=== PATIENT | male | born 1980 | race Caucasian/White ===

== ENCOUNTER 2024-04-28 17:14 | Emergency (ER) | payer OTHER, SELFPAY ==
[2024-04-28 17:20] VITALS: BP 172/116
--- NOTE | 2024-04-28 17:36 | ED.GENMED ---
History of Present Illness
General
Chief Complaint: Chest Pain
Time Seen by Provider: 04/28/24 17:35
History of Present Illness
History of Present Illness:
TIME OF INITIAL ENCOUNTER: 6 PM
HPI: The patient presents due to chest discomfort that started about 24 hours ago. He states it started after he had 'a lot' of thin crust pizza last evening. This is associated with some degree of shortness of breath and he has increased
discomfort when he tries to lay down flat. He does not go to doctors regularly but does not have any history of high blood pressure, high cholesterol, or diabetes. He never smoked. There is no family history of premature cardiovascular disease.
He currently has some central discomfort that is somewhat pleuritic in nature. He has not taken anything for stomach acid.
EXAM:
GENERAL: Well appearing in no distress, elevated BMI
HEENT: Moist oral mucosa
CARDIOVASCULAR: No murmurs, normal heart rate, regular rhythm, No chest wall tenderness
PULMONARY: No respiratory distress, breath sounds are clear and equal
ABDOMEN: Soft with no peritoneal signs, no tenderness
NEUROLOGIC: Excellent strength all extremities, no coordination deficits
PSYCHIATRIC: Appropriate mental status, normal insight and judgement
EXTREMITIES: Nontender, no edema, moves all extremities equally
SKIN: No rash, no lesions
NUMBER AND COMPLEXITY OF PROBLEMS ADDRESSED AT THE ENCOUNTER
� Chronic conditions affecting care: History of asthma
� Acute Exacerbation and/or Progression of Chronic Illness: This is an acute problem
� Differential Diagnosis includes: GERD/esophagitis, gastritis, chest wall pain, PE, pneumonia
AMOUNT AND/OR COMPLEXITY OF DATA TO BE REVIEWED AND ANALYZED
� I performed an independent evaluation of and my interpretation is:
EKG: Sinus 107, some prominence of the ST segments in V2 V3 with no old to compare
CT: CTA personally viewed and I also discussed with the vision radiologist who notes left greater than right consolidations
X-rays:
Laboratory Studies: White count 14.5, hemoglobin normal
Other:
� Review of other/old records: The patient was seen here in 2013 related to asthma
� Clinical information was obtained by an independent historian: I spoke to father and at bedside
� Prescriptions/Medications Considered but not given:
� Further testing considered but not performed:
RISK OF COMPLICATIONS AND/OR MORBIDITY OR MORTALITY OF PATIENT MANAGEMENT
� Social determinants of health affecting care: Lives at home
� Discussion with other providers:
� Escalation of care including admission/observation vs risk of discharge considered: Symptoms started after he had a lot of pizza last night. Before then he had no exertional symptoms. He still has no exertional symptoms.
Will try Pepcid and Maalox and also check troponin/D-dimer.
ANY OTHER UPDATES:
8 PM: Patient came back from CT he had rather debilitating kind of pain. Repeat EKG unchanged. Earlier while sitting upright, and after he was given Maalox and Pepcid he felt markedly improved.
8:45 PM: As he has been sitting upright further, he now feels continued improvement and feels strong preference about going home. He does not feel that his symptoms are bad enough to need to stay in the hospital. I did inform him of the CT imaging
that does show signs of pneumonia left greater than right but he wants to go home. I suspect that his symptoms are related to GERD more as opposed to pneumonia. He has not had any significant cough.
Past History
Past History
ED Past Medical History: Asthma
ED Past Surgical History: Orthopedic (Left knee arthroscopy)
Social History
Tobacco: Non-smoker
Alcohol: Occasional
Personal:
Living: with family
Employment: Employed (Contractor)
Family History
Family History: Negative Early CAD or Sudden
Phy Exam
Physical Exam
Physical Exam:
See HPI
Scores
Heart Score for Chest Pain Patients
STEMI patient?: Not applicable
Course
Orders/Labs/Results
Orders:
Orders
04/28/24 17:15
EKG [Electrocardiogram (*1)] Urgent
Reason for Study: Chest Pain
EKG- Treatment ONCE
04/28/24 17:16
Electrocardiogram (*1) Urgent
Reason for Study: Chest Pain
EKG- Treatment ONCE
04/28/24 17:40
Complete Blood Count/With Diff Urgent
Comprehensive Metabolic Panel Urgent
Troponin I Urgent
04/28/24 18:03
Famotidine [Pepcid] 20 mg IV NOW STA
Mag Hydrox/Al Hydrox/Simeth [Maalox] 30 ml PO NOW STA
04/28/24 18:05
D-Dimer Urgent
04/28/24 18:46
CT Chest Pe Study Urgent
Comment:
Reason For Exam: pleuritic pain; elevated ddimer
04/28/24 20:10
Ketorolac [Toradol] 15 mg IV NOW STA
04/28/24 20:12
Electrocardiogram (*1) Urgent
Reason for Study: Chest Pain
EKG- Treatment ONCE
04/28/24 20:17
Troponin I Urgent
04/28/24 20:42
Amoxicillin [Amoxil] 1,000 mg PO NOW STA
04/28/24 20:44
LevoFLOXacin [Levaquin] 500 mg PO NOW STA
Abnormal Lab Results
04/28/24 04/28/24
17:40 18:05
WBC 14.5 H 10^3/uL
(4.8-10.8)
MCH 31.2 H pg
(27.0-31.0)
Abs Immat Gran (auto) 0.1 H 10^3/uL
(0-0.05)
Absolute Neuts (auto) 11.4 H 10^3/uL
(1.4-6.5)
Absolute Monos (auto) 1.4 H 10^3/uL
(0.1-0.6)
Neutrophils % 78.6 H %
(42.2-75.2)
Lymphocytes % 11.0 L %
(20.5-51.1)
Monocytes % 9.9 H %
(1.7-9.3)
D-Dimer 0.77 H ug/mlFEU
(0.00-0.50)
Glucose 138 H mg/dl
(70-99)
04/28/24 17:40
04/28/24 17:40
Vital Signs
Initial and Last Documented VS:
Initial Vital Signs
Temp Pulse Resp BP Pulse Ox
98 F 107 16 172/116 97
04/28/24 17:20 04/28/24 17:20 04/28/24 17:20 04/28/24 17:20 04/28/24 17:20
Last Documented Vital Signs
Temp Pulse Resp BP Pulse Ox
97.8 F 97 21 134/80 95
04/28/24 21:18 04/28/24 20:45 04/28/24 20:45 04/28/24 20:08 04/28/24 20:45
*Critical Care Note
Total Time (30-74mins, 75-104mins- exclusive of procedures): Not Applicable
ED Attending Note
-
Portions of this chart may have been created with voice recognition software.� Occasional wrong word or��sound alike� substitutions may have occurred due to the inherent limitations of voice recognition software.
Discharge Plan
Departure
Patient Disposition: Home (Routine Discharge)
Date of Disposition: 04/28/24
Time of Disposition: 20:40
Patient with high blood pressure during this ER visit?: Yes
Discharge Problem:
Chest pain due to GERD
Instructions: Acid Reflux and GERD in Adults (DC), Pneumonia
Prescriptions:
New
levofloxacin 500 mg tablet
500 mg PO DAILY 6 Days Qty: 6 0RF
No Action
No Meds [No Current Medications]
cetirizine 10 MG tablet
10 mg PO DAILY Qty: 30 0RF
prednisone 20 MG tablet
40 mg PO DAILY Qty: 10 0RF
Rx Instructions:
2 po daily for 3 days, then 1 po daily for 3 days, then 1/2 OD for 2 days with food
albuterol sulfate [Albuterol Sulfate HFA] 18 GM HFA aerosol inhaler
2 puff IH QIDPRN PRN (Reason: cough, wheeze) Qty: 1 0RF
Referrals:
NONE,* [Family Provider] -
Activity Restrictions/Additional Instructions:
I feel your symptoms are most related to acid reflux. I strongly recommend starting a 2-week course of [id number] omeprazole to help block the production of acid production. I also recommend taking Pepcid and/or Maalox for more immediate
relief and to block the effects of the acid that is already there. Although the CAT scan shows no sign of blood clot, it does show signs of pneumonia so I am placing on antibiotics as well.
Interventions
Interventions:
*Risk Screen - Suicide Last Done: 04/28/24 17:20
*General Assessment Last Done: 04/28/24 19:06
*Neglect/Abuse Screening Last Done: 04/28/24 17:20
ED- Fall Risk Assessment Last Done: 04/28/24 19:06
*ED COVID-19 Vaccine History Last Done: 04/28/24 17:20
*Nursing Disposition Last Done: 04/28/24 21:18
ED- Cardiac Assessment Last Done: 04/28/24 19:06
Discharge Date and Time
Print Language: BERMUDIAN
[2024-04-28 17:39] VITALS: BP 150/91
[2024-04-28 17:50] LABS: % Basophils 0.2 % (0-2); % Immature Granulocytes 0.3 % (0-0.5); % Monocytes 9.9 % (1.7-9.3); % Neutrophils 78.6 % (42.2-75.2); Absolute Immature Granulocytes 0.1 10^3/uL (0-0.05); Absolute Lymphocytes 1.6 10^3/uL (1.2-3.4); Absolute Monocytes 1.4 10^3/uL (0.1-0.6); Absolute Neutrophils 11.4 10^3/uL (1.4-6.5); Hematocrit 45.9 % (39.0-52.0); Hemoglobin 15.4 g/dL (13.0-18.0); Mean Corp Hgb Conc. 33.6 g/dL (33.0-37.0); Mean Corpuscular Hgb 31.2 pg (27.0-31.0); Mean Corpuscular Volume 92.9 fL (80.0-94.0); Mean Platelet Volume 9.1 fL (7.4-10.4); Nucleated Red Blood Cells % 0 % (-); Platelet Count 251 10^3/uL (130-400); Red Blood Cell Count 4.94 10^6/uL (4.70-6.10); Red Cell Dist. Width 12.4 % (11.5-14.5); White Blood Cell Count 14.5 10^3/uL (4.8-10.8)
[2024-04-28 18:00] VITALS: BP 143/91
[2024-04-28 18:07] LABS: ALT (SGPT) 30 U/L (0-50); AST (SGOT) 24 U/L (17-59); Alkaline Phosphatase 77 U/L (38-126); Blood Urea Nitrogen 10 mg/dl (9-20); Calcium 9.4 mg/dl (8.4-10.2); Carbon Dioxide 24 mmol/L (22-30); Chloride 100 mmol/L (98-107); Glucose 138 mg/dl (70-99); Potassium 4.3 mmol/L (3.5-5.1); Sodium 139 mmol/L (135-145); Total Bilirubin 1.3 mg/dl (0.2-1.3); Total Protein 8.2 g/dl (6.3-8.2); eGFR > 60.00
[2024-04-28 18:13] LABS: Troponin I < 0.012 ng/ml
[2024-04-28 18:23] LABS: D-Dimer 0.77 ug/mlFEU (0.00-0.50)
[2024-04-28] MEDS: PEPCID 20 MG IV (18:33)
[2024-04-28] MEDS: MAALOX 30 ML PO (18:33)
[2024-04-28 19:00] VITALS: BP 121/83
[2024-04-28 20:08] VITALS: BP 134/80
[2024-04-28] MEDS: TORADOL 15 MG IV (20:16)
[2024-04-28 20:49] LABS: Troponin I < 0.012 ng/ml
[2024-04-28] MEDS: LEVAQUIN 500 MG PO (20:56)
== END 2024-04-28 21:21 | disposition home or self-care (01) ==
LOC: EMR 17:14
PROVIDERS: Emergency Medicine; EMERGENCY PHYSICIAN Emergency Medicine
DX: K21.9 Gastro-esophageal reflux disease without esophagitis (principal); J45.909 Unspecified asthma, uncomplicated; R79.1 Abnormal coagulation profile
CPT/HCPCS: 96374; 96375; 99284; 71275; 80053; 84484; 85025; 85379; 93005; Q9967